=== PATIENT | female | born 1940 | race Caucasian/White ===

== ENCOUNTER 2016-11-28 10:06 | Day surgery (SDC) | payer MEDICARE, OTHER ==
[~2016-11-28] VITALS: Ht 157.5 cm
--- NOTE | 2016-11-30 08:22 | OR ---
ADMIT: 11/28/2016 RM/LOC: [facility] MR#: [id number] [address] [address] [place] [address] Operative/Delivery Room Report SEX: F AGE: 76 : 1940 SURGERY DATE: 11/28/2016 SURGEON: Missy Li MD NET TRAINER: None. PREPROCEDURE DIAGNOSES: 1. Cervical disk degeneration. 2. Cervical neuritis. POSTPROCEDURE DIAGNOSES: 1. Cervical disk degeneration. 2. Cervical neuritis. PROCEDURE PERFORMED: Cervical epidural steroid injection, C7-T1 level. INDICATIONS FOR PROCEDURE: The patient is a pleasant female with history of chronic neck pain secondary to above-mentioned diagnosis, comes here for planned cervical epidural steroid injection. ANESTHESIA: Local without sedation. ESTIMATED BLOOD LOSS: Zero. COMPLICATIONS: None immediately evident. DESCRIPTION OF PROCEDURE: After the patient was seen in the preoperative area, vitals signs were taken. Prior to the procedure, the risks, benefits, and alternative therapies were discussed at length. Patient consent was obtained and updated. The patient was taken to the fluoroscopy suite and placed on the fluoroscopy table in the prone position. Pressure points were padded to comfort, monitors applied, and a timeout performed. Once adequate anesthesia of the skin over the cervical spine was achieved, the spine was prepped with ChloraPrep and draped in a sterile fashion. Under ADMIT: 11/28/2016 RM/LOC: [facility] MR#: [id number] [address] [address] [place] [address] Operative/Delivery Room Report SEX: F AGE: 76 : 1940 fluoroscopic guidance, a 20-gauge 3.5-inch Tuohy needle was passed through the anesthetized skin to the C7-T1 epidural space using a continuous loss of resistance to saline technique. The needle placement in the epidural space was confirmed by loss of resistance to saline and then injection of 2 mL of Isovue 300, which showed a clear epidural pattern with spread of contrast as high as C4. At this time, 4 mL of solution containing 80 mg of methylprednisolone and preservative-free normal saline were injected. The patient tolerated the procedure well and was discharged to postanesthesia recovery where she continued to recover without difficulty. PLAN: Discharge instructions were given, followup scheduled. The patient was discharged home with a services delivery driver. Missy Li MD/ karolyn JOB #: [id number] CC: Missy Li, Attending Physician Rohan Champion, Family Physician
== END 2016-11-28 11:31 | disposition home or self-care (01) ==
LOC: SSS 10:06
PROC: 3E0R33Z Introduction of Anti-inflammatory into Spinal Canal, Percutaneous Approach (ICD-10-PCS; principal; 2016-11-28)
PROC: B01BZZZ Fluoroscopy of Spinal Cord (ICD-10-PCS; principal; 2016-11-28)
DX: G89.29 Other chronic pain (principal); M50.10 Cervical disc disorder with radiculopathy, unspecified cervical region; F32.9 Major depressive disorder, single episode, unspecified; K21.9 Gastro-esophageal reflux disease without esophagitis; I10 Essential (primary) hypertension; E78.5 Hyperlipidemia, unspecified; E03.9 Hypothyroidism, unspecified; M81.0 Age-related osteoporosis without current pathological fracture; E55.9 Vitamin D deficiency, unspecified; Z79.82 Long term (current) use of aspirin; Z79.899 Other long term (current) drug therapy; Z87.891 Personal history of nicotine dependence; Z98.890 Other specified postprocedural states